=== PATIENT | female | born 1990 | race African-American/Black ===

== ENCOUNTER 2017-07-21 09:14 | Emergency (ER) | payer OTHER ==
[2017-07-21 09:35] VITALS: BP 107/63; PULSE 68; TEMP 98.4; BMI 25.7
--- NOTE | 2017-07-21 10:48 | PDOC ---
History of Present Illness - General Chief Complaint: Cold Symptoms Stated Complaint: Cold Symptoms Time Seen by Provider: 07/21/17 09:39 History Source: Patient Exam Limitations: No Limitations - History of Present Illness Initial Comments: 07/21/17 11:06 27 yr female with c/o cough nasal congestion for one month. pt with sneezing and scratchy throat. no fever no chills no foreign travel. pt has taken theraflu today. no PMHX or surgeries Severity: reports: mild Associated Symptoms: reports: cough, nasal congestion Past History - Past Medical History Allergies/Adverse Reactions: Allergies Allergy/AdvReac Type Severity Reaction Status Date / Time Penicillins Allergy Rash Verified 07/21/17 09:29 Home Medications: Ambulatory Orders Albuterol Sulfate Inhaler - [Ventolin HFA Inhaler -] 1 - 2 inh PO QID #1 inhaler 07/21/17 Fluticasone Prop 0.05% Nasal [Flonase -] 1 - 2 spray NS DAILY #1 spray.pump 06/26 Prednisone [Deltasone -] 40 mg PO DAILY #10 tablet 07/21/17 Anemia: Yes Asthma: No Cancer: No Cardiac Disorders: No COPD: No Diabetes: No HTN: No Seizures: No - Surgical History Appendectomy: Yes - Immunization History Immunization Up to Date: Yes - Suicide/Smoking/Psychosocial Hx Smoking Status: No Smoking History: Never smoked Have you smoked in the past 12 months: No Number of Cigarettes Smoked Daily: 0 Hx Alcohol Use: No Drug/Substance Use Hx: No Substance Use Type: None Hx Substance Use Treatment: No Review of Systems - Review of Systems Able to Perform ROS?: Yes Is the patient limited Estonian proficient: No Constitutional: No: Symptoms Reported HEENTM: Yes: Nose Congestion, Other (sneezing) Respiratory: Yes: Cough Cardiac (ROS): No: Symptoms Reported ABD/GI: No: Symptoms Reported : No: Symptoms Reported Musculoskeletal: No: Symptoms Reported Integumentary: No: Symptoms Reported Neurological: No: Symptoms reported *Physical Exam - Vital Signs Last Vital Signs Temp Pulse Resp BP Pulse Ox 98.4 F 68 19 107/63 99 07/21/17 09:30 07/21/17 09:30 07/21/17 09:30 07/21/17 09:30 07/21/17 09:30 - Physical Exam General Appearance: Yes: Nourished, Appropriately Dressed HEENT: positive: EOMI, CHRISTOPHE, Nasal Congestion, Other (post nasal drip ) Neck: positive: Supple. negative: Lymphadenopathy (R), Lymphadenopathy (L) Respiratory/Chest: positive: Lungs Clear, Normal Breath Sounds. negative: Chest Tender, Rhonchi, Stridor, Wheezing Cardiovascular: positive: Regular Rhythm, Regular Rate Gastrointestinal/Abdominal: positive: Normal Bowel Sounds, Soft Musculoskeletal: positive: Normal Inspection Extremity: positive: Normal Capillary Refill, Normal Inspection, Normal Range of Motion Integumentary: positive: Normal Color, Dry, Warm Neurologic: positive: Fully Oriented, Alert, Normal Mood/Affect, Normal Response , Motor Strength 11/11 ED Treatment Course - ADDITIONAL ORDERS Additional order review: Laboratory Results 07/21/17 09:58 Urine HCG, Qual Negative - RADIOLOGY Radiology Studies Ordered: Category Date Time Status CHEST PA & LAT [RAD] Stat Radiology 07/21/17 10:30 Completed Medical Decision Making - Medical Decision Making 07/21/17 11:07 cc: nasal congestion, sneezing, itchy throat , coughing no foreign travel no fever or chills will get cxr r/o pneumonia pt is stable no acute distress 07/21/17 11:11 neg CXR dc home with supportive care all questions asked and answered at discharge *DC/Admit/Observation/Transfer Diagnosis at time of Disposition: Acute viral bronchitis - Discharge Dispostion Disposition: HOME Condition at time of disposition: Good - Prescriptions Prescriptions: Albuterol Sulfate Inhaler - [Ventolin HFA Inhaler -] 1 - 2 inh PO QID #1 inhaler Fluticasone Prop 0.05% Nasal [Flonase -] 1 - 2 spray NS DAILY #1 spray.pump Prednisone [Deltasone -] 40 mg PO DAILY #10 tablet - Referrals Referrals: Riley Judd MD [Primary Care Provider] - - Patient Instructions Additional Instructions: drink pleanty of water take the medications as prescribed increase vitamin C and Zinc in your diet to help strengthen immune system follow with your doctor in 2-3 days for follow up return to ER for any worsening symptoms - Post Discharge Activity Forms/Work/School Notes: Back to Work
== END 2017-07-21 11:10 | disposition home or self-care (01) ==
LOC: JERFT 09:14
DX: J20.9 Acute bronchitis, unspecified (principal); B97.89 Other viral agents as the cause of diseases classified elsewhere
CPT/HCPCS: 71046-TC; 84703; 99281-25

== ENCOUNTER 2017-11-01 09:23 | Emergency (ER) | payer OTHER ==
[2017-11-01 09:44] VITALS: BP 100/66; PULSE 58; TEMP 98.2; BMI 25.0
--- NOTE | 2017-11-01 11:03 | PDOC ---
History of Present Illness - General Chief Complaint: Pain, Acute Stated Complaint: ABD PAIN Time Seen by Provider: 11/01/17 10:11 History Source: Patient Exam Limitations: No Limitations - History of Present Illness Initial Comments: 11/01/17 11:00 Patient is a 27-year-old female, 1 para 1, denies any significant medical history, presents with pain to abdomen above the umbilicus patient states "I feel a mass there" . As been having occasional chills, nausea associated with the pain. 3 weeks prior had similar pain, rated 10 out of 10 described as stabbing took a Motrin and it resolved the pain, now pain to same area. Is currently being treated for generalized rash, states that she has pityriasis is seeing dermatology today. Denies trauma. Reports having an IUD . No step patient, vomiting or diarrhea. Last BM this morning, normal, no blood. Past Medical History: Denies. Allergies: No known allergies Medications: None Family History: Non-contributory Social History: Denies smoking, alcohol use, or IVDU Review of Systems GENERAL/CONSTITUTIONAL: No fever or chills. No weakness. No weight change. HEAD, EYES, EARS, NOSE AND THROAT: No change in vision. No ear pain or discharge. No sore throat. CARDIOVASCULAR: No chest pain or shortness of breath. RESPIRATORY: No cough, wheezing, or hemoptysis. GASTROINTESTINAL: No nausea, vomiting, diarrhea or constipation. No rectal bleeding. Mass above the umbilicus GENITOURINARY: No dysuria, frequency, or change in urination. MUSCULOSKELETAL: No joint or muscle swelling or pain. No neck or back pain. SKIN AND BREASTS: No rash or easy bruising. NEUROLOGIC: No headache, vertigo, loss of consciousness, or loss of sensation. PSYCHIATRIC: No depression or anxiety. ENDOCRINE: No increased thirst. No abnormal weight change. HEMATOLOGIC/LYMPHATIC: No anemia, easy bleeding, or history of blood clots. ALLERGIC/IMMUNOLOGIC: No hives or skin allergy. No latex allergy. Physical Exam: GENERAL: The patient is awake, alert, and fully oriented, in no acute distress. HEAD: Normal with no signs of trauma. EYES: Pupils equal, round and reactive to light, extraocular movements intact, sclera anicteric, conjunctiva clear. ENT: Ears normal, nares patent, oropharynx clear without exudates. Moist mucous membranes. No uvula deviation NECK: Normal range of motion, supple without lymphadenopathy, JVD, or masses. LUNGS: Breath sounds equal, clear to auscultation bilaterally. No wheezes, and no crackles. HEART: Regular rate and rhythm, normal S1 and S2 without murmur, rub or gallop. ABDOMEN: Soft, tender above the umbilicus, normoactive bowel sounds. Guarding umbilical area, no rebound. Palpable 3 cm in width mass above the umbilicus, No bruising or abrasions. MUSCULOSKELETAL: Normal range of motion, no edema. No clubbing or cyanosis. No cords, erythema, or tenderness. No CVA Tenderness with fist. NEUROLOGICAL: Cranial nerves II through XII grossly intact. Normal speech, normal gait. SKIN: Generalized pruritic raised maculopapular rash, NOTED to back, one large well defined noted to right back, consistent with herald patch. Past History - Past Medical History Allergies/Adverse Reactions: Allergies Allergy/AdvReac Type Severity Reaction Status Date / Time Penicillins Allergy Rash Verified 11/01/17 09:39 Home Medications: Ambulatory Orders Ibuprofen [Motrin -] 600 mg PO QID #20 tablet 11/01/17 Anemia: Yes Asthma: No Cancer: No Cardiac Disorders: No COPD: No Diabetes: No HTN: No Seizures: No - Surgical History Appendectomy: Yes - Immunization History Immunization Up to Date: Yes - Suicide/Smoking/Psychosocial Hx Smoking Status: No Smoking History: Never smoked Have you smoked in the past 12 months: No Number of Cigarettes Smoked Daily: 0 Hx Alcohol Use: No Drug/Substance Use Hx: No Substance Use Type: None Hx Substance Use Treatment: No *Physical Exam - Vital Signs Last Vital Signs Temp Pulse Resp BP Pulse Ox 98.2 F 58 L 17 100/66 100 11/01/17 09:39 11/01/17 09:39 11/01/17 09:39 11/01/17 09:39 11/01/17 09:39 ED Treatment Course - LABORATORY CBC & Chemistry Diagram: 11/01/17 13:12 11/01/17 13:12 - ADDITIONAL ORDERS Additional order review: Laboratory Results 11/01/17 10:35 Urine HCG, Qual Negative - RADIOLOGY Radiology Studies Ordered: Category Date Time Status ABDOMEN-KUB FLAT PLATE [RAD] Stat Radiology 11/01/17 10:35 Ordered Medical Decision Making - Medical Decision Making 11/01/17 12:18 A/P: Patient with painful palpable mass above her umbilicus, urine sent, negative, x-ray of abdomen KUB ordered, negative for acute pathology. Dr. Pastor to see patient. 11/01/17 13:23 CBC, CMP, RPR sent, we'll do CT scan abdomen and pelvis with by mouth contrast. 11/01/17 15:20 Laboratory Results - last 24 hr 11/01/17 11/01/17 11/01/17 10:35 13:12 13:12 WBC 4.2 D RBC 3.90 Hgb 12.3 Hct 36.3 MCV 93.1 MCH 31.6 MCHC 33.9 RDW 13.7 Plt Count 227 D MPV 7.3 L Neutrophils % 39.8 L D Lymphocytes % 45.3 H D Monocytes % 11.2 H Eosinophils % 3.3 D Basophils % 0.4 D Sodium 140 Potassium 4.6 Chloride 105 Carbon Dioxide 27 Anion Gap 8 BUN 11 Creatinine 0.7 Creat Clearance w eGFR > 60 Random Glucose 82 Calcium 9.2 Total Bilirubin 1.0 AST 24 ALT 28 Alkaline Phosphatase 60 Total Protein 8.2 Albumin 4.2 Urine HCG, Qual Negative RPR Titer 11/01/17 14:50 WBC RBC Hgb Hct MCV MCH MCHC RDW Plt Count MPV Neutrophils % Lymphocytes % Monocytes % Eosinophils % Basophils % Sodium Potassium Chloride Carbon Dioxide Anion Gap BUN Creatinine Creat Clearance w eGFR Random Glucose Calcium Total Bilirubin AST ALT Alkaline Phosphatase Total Protein Albumin Urine HCG, Qual RPR Titer Nonreactive 11/01/17 15:34 CT demonstrated a moderate size, narrowing neck that filled hernia in the midline supraumbilical abdominal wall. Focal increased density within this that may be vascular or fat necrosis I have called Dr. Fenton to discuss. 11/01/17 15:58 Dr. Fenton called back, will come see patient. 11/01/17 17:48 Dr. Fenton to see patient, patient to follow up as outpatient for repair of hernia if any increased pain, vomiting, or any other concerns will need to return immediately to ER *DC/Admit/Observation/Transfer Diagnosis at time of Disposition: Umbilical hernia Qualifiers: Obstruction and gangrene presence: without obstruction or gangrene Qualified Code(s): K42.9 - Umbilical hernia without obstruction or gangrene - Discharge Dispostion Disposition: HOME Condition at time of disposition: Stable Admit: No - Prescriptions Prescriptions: Ibuprofen [Motrin -] 600 mg PO QID #20 tablet - Referrals Referrals: Yandel Gonzalez [Non Staff, Medical] - Gigi Nicholson MD [Staff Physician] - Clemente Fenton MD [Staff Physician] - - Patient Instructions Printed Discharge Instructions: Abdominal Hernia Additional Instructions: Follow-up with Dr. Fenton as soon as possible repair of umbilical hernia Pain, nausea vomiting, or any other concerns return to ER - Post Discharge Activity Forms/Work/School Notes: Back to Work
[2017-11-01 13:31] LABS: BASO % 0.4 % (0-2.0); EOS % 3.3 % (0-4.5); HEMATOCRIT 36.3 % (32.4-45.2); HEMOGLOBIN 12.3 GM/dL (10.7-15.3); LYMPH % 45.3 % (8-40); MCH 31.6 pg (25.7-33.7); MCHC 33.9 g/dl (32.0-36.0); MEAN CELL VOLUME 93.1 fl (80-96); MEAN PLT VOLUME 7.3 fl (7.5-11.1); MONO % 11.2 % (3.8-10.2); NEUT % 39.8 % (42.8-82.8); PLATELET COUNT 227 K/MM3 (134-434); RDW 13.7 % (11.6-15.6); WHITE BLOOD COUNT 4.2 K/mm3 (4.0-10.0)
[2017-11-01 13:45] LABS: ALBUMIN 4.2 g/dl (3.4-5.0); ALK PHOS 60 U/L (45-117); ANION GAP 8 (8-16); BLOOD UREA NITROGEN 11 mg/dL (7-18); CALCIUM 9.2 mg/dL (8.5-10.1); CHLORIDE 105 mmol/L (98-107); CO2 27 mmol/L (21-32); CREATININE 0.7 mg/dL (0.55-1.02); GLUCOSE,RANDOM 82 mg/dL (74-106); POTASSIUM 4.6 mmol/L (3.5-5.1); SGOT/AST 24 U/L (15-37); SGPT/ALT 28 U/L (12-78); SODIUM 140 mmol/L (136-145); TOT PROT 8.2 g/dl (6.4-8.2)
== END 2017-11-01 16:29 | disposition home or self-care (01) ==
LOC: JERFT 09:23
DX: Z48.01 Encounter for change or removal of surgical wound dressing (principal)
CPT/HCPCS: 36415; 74018-TC-FY; 74150-TC; 80053; 84703; 85025; 86593; 99282-25

== ENCOUNTER 2018-11-08 11:55 | Emergency (ER) | payer OTHER ==
[2018-11-08 12:07] VITALS: BP 98/60; PULSE 68; TEMP 98.9; BMI 26.6
[2018-11-08] MEDS ORDERED: IBUPROFEN 600 MG TABLET (FP) PO ONE ×2 (12:47→12:49)
--- NOTE | 2018-11-08 13:24 | PDOC ---
History of Present Illness - General Chief Complaint: Cold Symptoms Stated Complaint: FLU SYSMPTOMS Time Seen by Provider: 11/08/18 12:19 History Source: Patient Exam Limitations: No Limitations Past History - Travel Traveled outside of the country in the last 30 days: No Close contact w/someone who was outside of country & ill: No - Past Medical History Allergies/Adverse Reactions: Allergies Allergy/AdvReac Type Severity Reaction Status Date / Time Penicillins Allergy Rash Verified 11/01/17 09:39 Anemia: Yes Asthma: No Cancer: No Cardiac Disorders: No COPD: No Diabetes: No HTN: No Seizures: No - Surgical History Appendectomy: Yes - Immunization History Immunization Up to Date: Yes - Suicide/Smoking/Psychosocial Hx Smoking Status: No Smoking History: Never smoked Have you smoked in the past 12 months: No Number of Cigarettes Smoked Daily: 0 Information on smoking cessation initiated: No Hx Alcohol Use: No Drug/Substance Use Hx: No Substance Use Type: None Hx Substance Use Treatment: No Review of Systems - Review of Systems Able to Perform ROS?: Yes Comments:: 11/08/18 13:20 CONSTITUTIONAL: Absent: fever, chills, diaphoresis, generalized weakness, malaise, loss of appetite HEENT: Absent: rhinorrhea, nasal congestion, throat pain, throat swelling, difficulty swallowing, mouth swelling, ear pain, eye pain, visual Changes CARDIOVASCULAR: Absent: chest pain, loss of consciousness, palpitations, irregular heart rate, peripheral edema RESPIRATORY: Absent: cough, shortness of breath, dyspnea with exertion, orthopnea, wheezing, stridor, hemoptysis GASTROINTESTINAL: Absent: abdominal pain, abdominal distension, nausea, vomiting, diarrhea, constipation, melena, hematochezia GENITOURINARY: Absent: dysuria, frequency, urgency, hesitancy, hematuria, flank pain, genital pain MUSCULOSKELETAL: Absent: myalgia, arthralgia, joint swelling SKIN: Absent: rash, itching, pallor HEMATOLOGIC/IMMUNOLOGIC: Absent: easy bleeding, easy bruising, lymphadenopathy, frequent infections ENDOCRINE: Absent: unexplained weight gain, unexplained weight loss, heat intolerance, cold intolerance NEUROLOGIC: Absent: headache, focal weakness or paresthesias, dizziness, unsteady gait, seizure, mental status changes, bladder or bowel incontinence PSYCHIATRIC: Absent: anxiety, depression, suicidal or homicidal ideation, hallucinations. Is the patient limited Ivorian proficient: No *Physical Exam - Vital Signs Last Vital Signs Temp Pulse Resp BP Pulse Ox 98.9 F 68 18 98/60 100 11/08/18 12:03 11/08/18 12:03 11/08/18 12:03 11/08/18 12:03 11/08/18 12:03 ED Treatment Course - Medications Given in the ED: ED Medications Discontinued Medications Generic Name Dose Route Start Last Admin Trade Name Lore PRN Reason Stop Dose Admin Ibuprofen 600 mg 11/08/18 12:47 11/08/18 12:50 Motrin - PO 11/08/18 12:48 600 mg ONCE ONE Administration *DC/Admit/Observation/Transfer Diagnosis at time of Disposition: Acute pharyngitis Qualifiers: Pharyngitis/tonsillitis etiology: unspecified etiology Qualified Code(s): J02.9 - Acute pharyngitis, unspecified - Discharge Dispostion Disposition: HOME Condition at time of disposition: Stable Decision to Admit order: No - Referrals Referrals: Mima Carrillo MD [Primary Care Provider] - - Patient Instructions Printed Discharge Instructions: DI for Pharyngitis/Tonsillopharyngitis -- Adult Additional Instructions: You have a sore throat or pharyngitis. Rapid strep testing was negative today. You may take Motrin 600 mg every 6 hours as needed for pain. Please do warm water gargles and cough drops to help with your pain. Change your toothbrush when you started feeling better. Follow-up with your primary care doctor. Return to the ER for fever, difficulty breathing, difficulty swallowing, or if you have any changes in your symptoms. - Post Discharge Activity Forms/Work/School Notes: Back to Work
== END 2018-11-08 13:52 | disposition home or self-care (01) ==
LOC: JERFT 11:55
DX: J02.9 Acute pharyngitis, unspecified (principal); Z88.0 Allergy status to penicillin
CPT/HCPCS: 87070; 87880; 99281-25

== ENCOUNTER 2020-05-28 12:08 | Emergency (ER) | payer OTHER ==
[2020-05-28 12:16] VITALS: BP 116/65; PULSE 65; TEMP 98.6; BMI 27.4
== END 2020-05-28 15:22 | disposition home or self-care (01) ==
LOC: JERFT 12:08
DX: J06.9 Acute upper respiratory infection, unspecified (principal)
CPT/HCPCS: 71046-TC-FY; 87804; 99284-25; C9803; U0003

== ENCOUNTER 2020-08-08 12:20 | Emergency (ER) | payer OTHER ==
[2020-08-08 12:36] VITALS: TEMP 98.2; BMI 25.7
[2020-08-08 14:02] LABS: BASO % 0.4 % (0-2.0); EOS % 1.6 % (0-4.5); HEMATOCRIT 36.4 % (32.4-45.2); HEMOGLOBIN 12.4 GM/dL (10.7-15.3); LYMPH % 36.2 % (8-40); MCH 32.1 pg (25.7-33.7); MCHC 34.1 g/dl (32.0-36.0); MEAN CELL VOLUME 94.1 fl (80-96); MEAN PLT VOLUME 7.1 fl (7.5-11.1); MONO % 13.4 % (3.8-10.2); NEUT % 48.4 % (42.8-82.8); PLATELET COUNT 243 K/MM3 (134-434); RBC 3.87 M/mm3 (3.60-5.2); RDW 13.9 % (11.6-15.6); WHITE BLOOD COUNT 5.1 K/mm3 (4.0-10.0)
[2020-08-08 14:04] LABS: PH,URINE 8.5 (5.0-8.0); URINE APPEARANCE TURBID; URINE BILIRUBIN NEGATIVE (NEGATIVE); URINE COLOR YELLOW; URINE GLUCOSE (UA) NEGATIVE (NEGATIVE); URINE KETONE NEGATIVE (NEGATIVE); URINE LEUK ESTERASE NEGATIVE (NEGATIVE); URINE NITRITE NEGATIVE (NEGATIVE); URINE PROTEIN NEGATIVE (NEGATIVE)
[2020-08-08 14:07] LABS: HCG,QUALITATIVE URINE Negative
[2020-08-08 14:26] LABS: POTASSIUM 4.1 mmol/L (3.5-5.1)
[2020-08-08 14:27] LABS: CALCIUM 9.2 mg/dL (8.5-10.1)
[2020-08-08 14:31] LABS: CREATININE 0.8 mg/dL (0.55-1.3)
[2020-08-08 14:33] LABS: BILIRUBIN,TOTAL 1.1 mg/dL (0.2-1); TOT PROT 8.2 g/dl (6.4-8.2)
[2020-08-08 15:34] VITALS: BP 97/61; PULSE 64
== END 2020-08-08 15:35 | disposition home or self-care (01) ==
LOC: JER 12:20
DX: R10.9 Unspecified abdominal pain (principal)
CPT/HCPCS: 36415; 76775-TC; 80053; 81003; 84703; 85025; 87086; 99284-25

== ENCOUNTER 2021-07-01 10:30 | Emergency (ER) | payer OTHER ==
[2021-07-01 10:56] VITALS: BP 108/68; PULSE 78; TEMP 99.7; BMI 25.8
[2021-07-01] MEDS ORDERED: IBUPROFEN 600 MG TABLET (FP) PO ONE ×2 (11:46→12:13)
[2021-07-01] MEDS ORDERED: ONDANSETRON *ODT* 4 MG TABLET SL ONE (11:46)
[2021-07-01] MEDS ORDERED: ONDANSETRON *ODT* 4 MG TABLET ONE (12:13)
== END 2021-07-01 14:00 | disposition home or self-care (01) ==
LOC: JER 10:30
DX: J06.9 Acute upper respiratory infection, unspecified (principal)
CPT/HCPCS: 87804; 87807; 99283-25; C9803; Q0162; U0003; U0005

== ENCOUNTER 2021-12-16 12:00 | Emergency (ER) | payer OTHER ==
[2021-12-16 12:17] VITALS: BP 113/58; PULSE 80; TEMP 98.7; BMI 26.6
== END 2021-12-16 13:13 | disposition home or self-care (01) ==
LOC: JERFT 12:00
DX: L98.8 Other specified disorders of the skin and subcutaneous tissue (principal)
CPT/HCPCS: 99282-25

== ENCOUNTER 2022-07-10 21:34 | Emergency (ER) | payer OTHER ==
[2022-07-10 21:52] VITALS: BP 120/69; PULSE 77; RESP 20; TEMP 98.6; BMI 28.3
[2022-07-10] MEDS ORDERED: diazePAM 5 MG TABLET PO ONE (22:19)
[2022-07-10] MEDS ORDERED: LIDOCAINE 5% TOPICAL PATCH TP ONE (22:19)
[2022-07-10] MEDS ORDERED: IBUPROFEN 600 MG TABLET (FP) PO ONE ×2 (22:19→22:22)
[2022-07-10] MEDS ORDERED: LIDOCAINE 5% TOPICAL PATCH ONE (22:22)
[2022-07-10] MEDS ORDERED: diazePAM 5 MG TABLET ONE (22:22)
[2022-07-11] MEDS ORDERED: LIDOCAINE PATCH REMOVAL MC SCH (10:30)
== END 2022-07-10 22:31 | disposition home or self-care (01) ==
LOC: JERFT 21:34 → JER 21:34 → JERFT 22:31
DX: M54.2 Cervicalgia (principal); V49.50XA Passenger injured in collision with unspecified motor vehicles in traffic accident, initial encounter
CPT/HCPCS: 99283-25

== ENCOUNTER 2023-07-27 16:53 | Emergency (ER) | payer OTHER ==
[2023-07-27 17:04] VITALS: BP 108/54; PULSE 69; RESP 18; TEMP 98.2; BMI 31.6
== END 2023-07-27 18:30 | disposition home or self-care (01) ==
LOC: JERFT 16:53
DX: S00.3 Superficial injury of nose (principal); W49.04XA Ring or other jewelry causing external constriction, initial encounter; Y92.9 Unspecified place or not applicable
CPT/HCPCS: 99283-25